=== PATIENT | male | born 2005 | race African-American/Black ===

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

== ENCOUNTER 2023-11-30 10:25 | Inpatient (IN) | payer MEDICAID ==
[2023-11-30] VITALS (15 sets, daily range): BP systolic 55–123; BP diastolic 18–95; PULSE 141–158; RESP 32–54; TEMP 37.503; O2SAT 90–100
[~2023-11-30] VITALS: Ht 172.7 cm; Wt 128.4 kg
[~2023-11-30 10:25] MED LIST: KEPP250 PO; LIDOCAINE HCL 1% 10 MG/ML 5ML VIAL ONE
[2023-11-30] MEDS ORDERED: AZITHROMYCIN 500MG/250ML 250 ML IV ONE (11:15)
[2023-11-30] MEDS: CEFTRIAXONE 1GM/50ML 50 ML IV ONE (11:27)
[2023-11-30] MEDS: SODIUM CHLORIDE 0.9% 1000ML BAG (SEPSIS BOLUS) IV ONE (11:27)
[2023-11-30 12:09] LABS: BASOPHILS % 0.4 % (0.0-2.0); EOSINOPHILS % 1.3 % (0.0-5.0); HEMATOCRIT. 40.8 % (42.0-52.0); HEMOGLOBIN. 13.4 g/dL (14.0-18.0); LYMPHOCYTES % 19.4 % (20.0-50.0); MEAN CORPUSCULAR HGB CONC 32.8 g/dL (31.0-37.0); MEAN CORPUSCULAR VOLUME 88.5 fL (80.0-94.0); MEAN PLATELET VOLUME 7.6 fl (7.4-10.4); NEUTROPHILS % 73.9 % (40.0-76.0); PLATELET 353 x1000/uL (130-400); RED BLOOD CELL COUNT 4.62 mill/uL (4.7-6.1); RED CELL DISTRIBUTION WIDTH 13.1 % (11.6-14.6); WHITE BLOOD COUNT 11.6 x1000/uL (4.5-11.0)
[2023-11-30 12:17] LABS: CHLORIDE 106 mEq/L (98-107); POTASSIUM 4.1 mEq/L (3.5-5.1); PROTHROMBIN TIME 11.5 sec (9.6-11.0); SODIUM 135 mEq/L (136-145)
[2023-11-30 12:18] LABS: CALCIUM 8.9 mg/dL (8.7-10.4); CARBON DIOXIDE 22 mEq/L (21-32)
[2023-11-30 12:23] LABS: CREATININE 0.9 mg/dL (0.6-1.3); GLUCOSE 253 mg/dL (70-105); UREA NITROGEN BLOOD 10 mg/dL (9-23)
[2023-11-30 12:24] LABS: TROPONIN I HIGH SENSITIVITY 24 ng/L (3.0-53)
[2023-11-30 12:25] LABS: ALANINE AMINOTRANSFERASE 18 IU/L (10-49); ASPARTATE AMINOTRANSFERASE 15 IU/L (<34); BILIRUBIN TOTAL 0.6 mg/dL (0.1-1.0); PROTEIN TOTAL 6.7 g/dL (6.0-8.3)
[2023-11-30 12:28] LABS: THYROID STIMULATING HORMONE 0.89 uIU/mL (0.55-4.78)
[2023-11-30] MEDS: AZITHROMYCIN 500MG/250ML 250 ML IV NR (14:38)
[2023-11-30 14:40] LABS: CLARITY URINE CLEAR (CLEAR); COLOR URINE YELLOW (YELLOW); GLUCOSE URINE TRACE (NEGATIVE); KETONES URINE 1+ (NEGATIVE); LEUKOCYTE ESTERASE URINE NEGATIVE (NEGATIVE); NITRITE URINE NEGATIVE (NEGATIVE); OCCULT BLOOD URINE NEGATIVE (NEGATIVE); PH URINE 5.5 (4.5-8.0); PROTEIN URINE NEGATIVE (NEGATIVE); SPECIFIC GRAVITY URINE 1.025 (1.005-1.030)
[2023-11-30 14:50] LABS: MUCUS URINE TRACE /lpf (NONE/TRACE); SQUAMOUS EPITHELIAL CELL URINE RARE /lpf (RARE/1+)
[2023-11-30 14:51] LABS: BACTERIA URINE TRACE; RBC URINE NONE SEEN /hpf (0-2); WBC URINE 0-2 /hpf (0-2)
[2023-11-30] MEDS ORDERED: MEROPENEM 1G/100ML 100 ML IV STA (18:21)
[2023-11-30] MEDS ORDERED: AZITHROMYCIN 500MG/250ML 250 ML IV STA (18:21)
[2023-11-30 18:26] LABS: BG BASE EXCESS -6.3 mmol/L (-2.0-3.0); BG CARBOXYHEMOGLOBIN 0.4 % (0.5-1.5); BG DEOXYHEMOGLOBIN 0.1 % (0.0-5.0); BG FRACTION INSPIRED OXYGEN 100; BG HCO3 ACT 18.2 mmol/L (21.0-28.0); BG METHEMOGLOBIN 0.3 % (0.5-1.5); BG OXYGEN SATURATION 99.9 % (94.0-98.0); BG OXYHEMOGLOBIN 99.2 % (94.0-98.0); BG PCO2 33.2 mmHg (35.0-48.0); BG PH 7.356 (7.350-7.450); BG PO2 392.4 mmHg (83.0-108.0); BG SAMPLE SITE RIGHT RADIAL; BG TOTAL HEMOGLOBIN 14.3 g/dL (13.5-17.5); BG TOTAL RESPIRATORY RATE 29 b/min; BG VENT MODE MASK - BIPAP
[2023-11-30] MEDS: SODIUM CHLORIDE 0.9% 100 ML IV ONE (18:34)
[2023-11-30] MEDS: DILTIAZEM HCL 5MG/ML 5ML VIAL IV NR (18:44)
[2023-11-30] MEDS: MEROPENEM 1G/100ML IV SCH (18:45)
[2023-11-30] MEDS ORDERED: DILTIAZEM HCL 125 MG in DEXT 5% WATER 100 ML IV ONE (19:00)
[2023-11-30] MEDS: DILTIAZEM HCL 125 MG in DEXT 5% WATER 100 ML IV ONE (19:51)
[2023-11-30] MEDS: VANCOMYCIN 1,750 MG in DEXT 5% WATER 500 ML IV NR (19:52)
[2023-11-30] MEDS: DOXYCYCLINE 100MG/100ML 100 ML IV SCH (20:00)
[2023-11-30] MEDS ORDERED: DILTIAZEM HCL 125 MG in DEXT 5% WATER 100 ML IV PRN ×2 (21:00→21:30)
[2023-11-30] MEDS: DIPHENHYDRAMINE 50MG/ML VIAL IV PRN (21:46)
[2023-11-30] MEDS: METOPROLOL TARTRATE 5MG/5ML VIAL IV PRN (21:46)
[2023-11-30] MEDS ORDERED: MEROPENEM 500MG/50ML 50 ML IV SCH (22:00)
[2023-11-30] MEDS ORDERED: DEXTROSE 50% WATER 50ML SYRINGE IV PRN (23:45)
[2023-12-01] VITALS (119 sets, daily range): BP systolic 49–187; BP diastolic 10–146; PULSE 131–155; RESP 12–65; TEMP 36.55848–37.503; O2SAT 85–99
[2023-12-01] MEDS: METHYLPREDNISOLONE SOD SUCC 40MG/ML (ACT-O-VIAL) IV SCH ×2 (00:02→08:21)
[2023-12-01] MEDS: SODIUM BICARBONATE 50 MEQ in DEXT 5%/0.45% NACL 1000ML 950 ML IV SCH (00:02)
[2023-12-01] MEDS: VANCOMYCIN 1GM/200ML PMX (BAXTER) IV SCH ×2 (05:02→12:08)
[2023-12-01 06:06] LABS: CARBON DIOXIDE 18 mEq/L (21-32); CHLORIDE 104 mEq/L (98-107); POTASSIUM 4.9 mEq/L (3.5-5.1); SODIUM 133 mEq/L (136-145)
[2023-12-01 06:07] LABS: CALCIUM 8.8 mg/dL (8.7-10.4)
[2023-12-01 06:11] LABS: GLUCOSE 375 mg/dL (70-105)
[2023-12-01 06:12] LABS: CHOLESTEROL 227 mg/dL (<200); LDL CHOLESTEROL 176 mg/dL (5-100); TRIGLYCERIDE 179 mg/dL (0-150); UREA NITROGEN BLOOD 12 mg/dL (9-23)
[2023-12-01 06:14] LABS: HDL CHOLESTEROL 32 mg/dL (>55)
[2023-12-01] MEDS: INSULIN LISPRO 100 UNITS/ML SUBCUT SCH ×2 (06:20→12:51)
[2023-12-01] MEDS: BLOOD SUGAR DIAGNOSTIC STRIP TEST SCH (06:30)
[2023-12-01 06:43] LABS: HEMATOCRIT 42.6 % (42.0-52.0); HEMOGLOBIN 14.4 g/dL (14.0-18.0); MEAN CORPUSCULAR HEMOGLOBIN 29.8 pg (28.0-32.0); MEAN CORPUSCULAR HGB CONC 33.7 g/dL (31.0-37.0); MEAN CORPUSCULAR VOLUME 88.6 fL (80.0-94.0); PLATELET 434 x1000/uL (130-400); RED BLOOD CELL COUNT 4.81 mill/uL (4.7-6.1); WHITE BLOOD COUNT 17.9 x1000/uL (4.5-11.0)
[2023-12-01] MEDS: PANTOPRAZOLE SODIUM 40 MG/VIAL IV SCH (08:20)
[2023-12-01] MEDS: DOXYCYCLINE 100MG/100ML 100 ML IV SCH (08:20)
[2023-12-01] MEDS: ENOXAPARIN 30MG/0.3ML SYR SUBCUT SCH (08:21)
[2023-12-01] MEDS ORDERED: IOHEXOL-350 100 ML BOTTLE ONE (08:31)
[2023-12-01 09:14] LABS: BG BASE EXCESS -6.7 mmol/L (-2.0-3.0); BG DEOXYHEMOGLOBIN 6.9 % (0.0-5.0); BG FRACTION INSPIRED OXYGEN 100; BG HCO3 ACT 16.7 mmol/L (21.0-28.0); BG METHEMOGLOBIN 0.1 % (0.5-1.5); BG OXYGEN SATURATION 93.1 % (94.0-98.0); BG PCO2 29.3 mmHg (35.0-48.0); BG PH 7.373 (7.350-7.450); BG SAMPLE SITE RIGHT RADIAL; BG TOTAL HEMOGLOBIN 18.6 g/dL (13.5-17.5); BG VENT MODE MASK - BIPAP
[2023-12-01] MEDS: ADENOSINE 3 MG/ML 2ML VIAL IV NR (09:15)
[2023-12-01] MEDS: ESMOLOL 2500MG PREMIX 250 ML IV PRN (09:32)
[2023-12-01] MEDS: SODIUM BICARBONATE 8.4% 50MEQ/50ML SYR IV NR (10:09)
[2023-12-01] MEDS ORDERED: IPRATROPIUM BROMIDE (0.02%) 0.5MG/2.5ML NEB HHN PRN (12:30)
[2023-12-01] MEDS ORDERED: AZITHROMYCIN 500MG/250ML 250 ML IV SCH (14:00)
[2023-12-01] MEDS: MEROPENEM 1G/100ML IV SCH (14:16)
[2023-12-01] MEDS: FUROSEMIDE 40MG/4ML VIAL IVP NR (14:17)
[2023-12-01 18:47] LABS: BG BASE EXCESS -4.7 mmol/L (-2.0-3.0); BG CARBOXYHEMOGLOBIN 0.2 % (0.5-1.5); BG DEOXYHEMOGLOBIN 4.9 % (0.0-5.0); BG FRACTION INSPIRED OXYGEN 100; BG HCO3 ACT 18.8 mmol/L (21.0-28.0); BG METHEMOGLOBIN 0.3 % (0.5-1.5); BG OXYGEN SATURATION 95.1 % (94.0-98.0); BG OXYHEMOGLOBIN 94.6 % (94.0-98.0); BG PCO2 31.2 mmHg (35.0-48.0); BG PH 7.399 (7.350-7.450); BG PO2 78.4 mmHg (83.0-108.0); BG SAMPLE SITE RIGHT RADIAL; BG TOTAL HEMOGLOBIN 15.7 g/dL (13.5-17.5); BG VENT MODE HIGH FLOW
[2023-12-02] VITALS (104 sets, daily range): BP systolic 49–145; BP diastolic 22–106; PULSE 91–162; RESP 0–54; TEMP 36.28068–37.28076; O2SAT 64–100
[2023-12-02] MEDS: BLOOD SUGAR DIAGNOSTIC STRIP TEST SCH ×2 (00:05→11:49)
[2023-12-02] MEDS: INSULIN LISPRO 100 UNITS/ML SUBCUT SCH ×2 (00:07→11:54)
[2023-12-02 03:23] LABS: BASOPHILS % 0.1 % (0.0-2.0); HEMATOCRIT. 37.3 % (42.0-52.0); HEMOGLOBIN. 12.2 g/dL (14.0-18.0); LYMPHOCYTES % 7.5 % (20.0-50.0); MEAN CORPUSCULAR HGB CONC 32.6 g/dL (31.0-37.0); MEAN CORPUSCULAR VOLUME 88.9 fL (80.0-94.0); MEAN PLATELET VOLUME 7.8 fl (7.4-10.4); MONOCYTES % 6.2 % (2.0-8.0); NEUTROPHILS % 86.2 % (40.0-76.0); PLATELET 323 x1000/uL (130-400); RED BLOOD CELL COUNT 4.19 mill/uL (4.7-6.1); RED CELL DISTRIBUTION WIDTH 13.1 % (11.6-14.6); WHITE BLOOD COUNT 18.4 x1000/uL (4.5-11.0)
[2023-12-02 03:24] LABS: CARBON DIOXIDE 25 mEq/L (21-32); CHLORIDE 103 mEq/L (98-107); POTASSIUM 3.9 mEq/L (3.5-5.1); SODIUM 136 mEq/L (136-145)
[2023-12-02 03:25] LABS: CALCIUM 8.3 mg/dL (8.7-10.4)
[2023-12-02 03:30] LABS: GLUCOSE 239 mg/dL (70-105); UREA NITROGEN BLOOD 12 mg/dL (9-23)
[2023-12-02 08:30] LABS: BG BASE EXCESS -0.7 mmol/L (-2.0-3.0); BG CARBOXYHEMOGLOBIN 0.3 % (0.5-1.5); BG DEOXYHEMOGLOBIN 4.8 % (0.0-5.0); BG FRACTION INSPIRED OXYGEN 100; BG HCO3 ACT 22.4 mmol/L (21.0-28.0); BG METHEMOGLOBIN 0.3 % (0.5-1.5); BG OXYGEN SATURATION 95.2 % (94.0-98.0); BG OXYHEMOGLOBIN 94.6 % (94.0-98.0); BG PCO2 32.5 mmHg (35.0-48.0); BG PH 7.457 (7.350-7.450); BG PO2 74.1 mmHg (83.0-108.0); BG SAMPLE SITE RIGHT RADIAL; BG TOTAL HEMOGLOBIN 13.3 g/dL (13.5-17.5); BG VENT MODE HIGH FLOW
[2023-12-02] MEDS: SODIUM CHLORIDE 0.45% 1,000 ML IV SCH (11:34)
[2023-12-02] MEDS: FUROSEMIDE 40MG/4ML VIAL IVP SCH (13:36)
[2023-12-02] MEDS: ONDANSETRON HCL 4MG/2ML INJ IV PRN (17:42)
[2023-12-03] VITALS (107 sets, daily range): BP systolic 43–155; BP diastolic 12–107; PULSE 128–151; RESP 0–41; TEMP 36.72516–37.05852; O2SAT 92–100
[2023-12-03] MEDS: PHENYLEPHRINE 100 MG in DEXT 5% WATER 240 ML IV PRN (01:04)
[2023-12-03 04:28] LABS: POTASSIUM 4.3 mEq/L (3.5-5.1)
[2023-12-03 04:30] LABS: CALCIUM 8.4 mg/dL (8.7-10.4)
[2023-12-03 04:39] LABS: THYROID STIMULATING HORMONE 1.49 uIU/mL (0.55-4.78)
[2023-12-03 04:48] LABS: BASOPHILS % 0.2 % (0.0-2.0); EOSINOPHILS % 0.1 % (0.0-5.0); HEMATOCRIT. 37.8 % (42.0-52.0); HEMOGLOBIN. 12.6 g/dL (14.0-18.0); LYMPHOCYTES % 14.1 % (20.0-50.0); MEAN CORPUSCULAR HEMOGLOBIN 30.2 pg (28.0-32.0); MEAN CORPUSCULAR HGB CONC 33.4 g/dL (31.0-37.0); MEAN CORPUSCULAR VOLUME 90.5 fL (80.0-94.0); MEAN PLATELET VOLUME 7.9 fl (7.4-10.4); MONOCYTES % 6.9 % (2.0-8.0); NEUTROPHILS % 78.7 % (40.0-76.0); PLATELET 312 x1000/uL (130-400); RED BLOOD CELL COUNT 4.18 mill/uL (4.7-6.1); RED CELL DISTRIBUTION WIDTH 13.6 % (11.6-14.6); WHITE BLOOD COUNT 21.5 x1000/uL (4.5-11.0)
[2023-12-03 05:10] LABS: CREATININE 1.9 mg/dL (0.6-1.3)
[2023-12-03] MEDS: METHYLPREDNISOLONE SOD SUCC 40MG/ML (ACT-O-VIAL) IV SCH (08:38)
[2023-12-03] MEDS: INSULIN GLARGINE 100 UNITS/ML SUBCUT SCH (16:39)
[2023-12-03] MEDS: ACETAMINOPHEN 325MG TABLET PO PRN (17:31)
[2023-12-03] MEDS: LEVETIRACETAM 500MG PREMIX 100 ML IV NR (17:32)
[2023-12-03] MEDS: LEVETIRACETAM 500MG PREMIX 100 ML IV SCH (20:11)
[2023-12-03] MEDS ORDERED: ESMOLOL HCL IV PRN (21:00)
[2023-12-03] MEDS ORDERED: WATER IV PRN (21:00)
[2023-12-03] MEDS ORDERED: DEXT 5% IV PRN (21:00)
[2023-12-03] MEDS ORDERED: LEVETIRACETAM 500MG/5ML CUP PO SCH (21:00)
[2023-12-04] MEDS ORDERED: DOPAMINE 400MG/250ML PREMIX 250 ML IV ONE (00:09)
[2023-12-04] MEDS: DOPAMINE 400MG/250ML PREMIX 250 ML IV PRN (00:12)
[2023-12-04 00:30] VITALS: PULSE 73; RESP 20; O2SAT 99
== END 2023-12-04 04:46 | DRG 720 ==
LOC: ER 10:25 → MICUSO 12:54 → EDBEDREQTM 13:00 → EDBEDREQ 13:00 → EDBEDREQSVC 16:55 → MICUSO 21:36
PROVIDERS: ADMIT Internal Medicine; ATTEND Internal Medicine
PROC: 5A09357 Assistance with Respiratory Ventilation, Less than 24 Consecutive Hours, Continuous Positive Airway Pressure (ICD-10-PCS; 2023-11-30)
PROC: 5A0945A Assistance with Respiratory Ventilation, 24-96 Consecutive Hours, High Flow/Velocity Cannula (ICD-10-PCS; 2023-12-01)
PROC: 5A12012 Performance of Cardiac Output, Single, Manual (ICD-10-PCS; principal; 2023-12-04)
PROC: 5A1935Z Respiratory Ventilation, Less than 24 Consecutive Hours (ICD-10-PCS; 2023-12-04)
PROC: 0BH17EZ Insertion of Endotracheal Airway into Trachea, Via Natural or Artificial Opening (ICD-10-PCS; 2023-12-04)
DX: A41.9 Sepsis, unspecified organism (principal); J96.01 Acute respiratory failure with hypoxia; I42.9 Cardiomyopathy, unspecified; I47.10 Supraventricular tachycardia, unspecified; J18.9 Pneumonia, unspecified organism; N17.9 Acute kidney failure, unspecified; I48.92 Unspecified atrial flutter; I46.9 Cardiac arrest, cause unspecified; E11.65 Type 2 diabetes mellitus with hyperglycemia; G40.909 Epilepsy, unspecified, not intractable, without status epilepticus; E66.9 Obesity, unspecified; Z68.41 Body mass index [BMI] 40.0-44.9, adult; Z86.16 Personal history of COVID-19; Z79.899 Other long term (current) drug therapy
CPT/HCPCS: 31500; 36415; 36600; 71045; 71275; 80048; 80053; 80061; 80202; 81003; 82375; 82805; 82962; 83036; 83605; 83735; 83880; 84145; 84443; 84484; 85025; 85027; 87070; 87426; 93005; 93306; 94003; 94660; 99291; J0153; J0456; J0696; J1200; J1265; J1650; J1815; J1940; J1953; J2185; J2405; J2470; J2920; J3370; J3490; J7030; J7060; Q9967